=== PATIENT | male | born 1975 | race Two or more races ===

== ENCOUNTER 2016-12-30 00:02 | Emergency (ER) | payer SELFPAY ==
[2016-12-30 00:26] VITALS: BMI 17.8
[2016-12-30 00:32] VITALS: BP 138/88; PULSE 94; RESP 21; TEMP 97.4; O2SAT 98
--- NOTE | 2016-12-30 00:41 | ED PDOC ---
Arrival/HPI - General Chief Complaint: GI Problem Time Seen by Provider: 12/30/16 00:31 - History of Present Illness Narrative History of Present Illness (Text): 12/30/16 00:31 41yo male with a hx of pancreatitis, presents with abd pain, nausea and non- bilious non-bloody vomiting. pt states this feels like previous pancreatitis symptoms. Denies other complaints. No f/c. No symptoms. States he has a hx of alcoholic pancreatitis. States his last drink was 8 years ago. Past Medical History - Provider Review Nursing Documentation Reviewed: Yes - Infectious Disease Hx of Infectious Diseases: None - Pulmonary Hx Asthma: Yes - Endocrine/Metabolic Hx Endocrine Disorders: Yes Other/Comment: Pancreatitis - Gastrointestinal Hx Pancreatitis: Yes - Psychiatric Hx Substance Use: No - Surgical History Other/Comment: Lipoma removal - Anesthesia Hx Anesthesia: Yes Hx Anesthesia Reactions: No Hx Malignant Hyperthermia: No Family/Social History Family/Social History: Unknown Family HX Smoking Status: Heavy Smoker > 10 Cigarettes Daily Hx Alcohol Use: Yes (stopped 8 years ago) Hx Substance Use: No Allergies/Home Meds Allergies/Adverse Reactions: Allergies metoclopramide HCl [From Reglan] Allergy (Verified 12/30/16 00:26) RASH Penicillins Allergy (Verified 12/30/16 00:26) RASH Physical Exam - Physical Exam Narrative Physical Exam (Text): - Review of Systems Constitutional: Normal. absent: Fatigue, Weight Change, Fevers Eyes: Normal ENT: denies sore throat, denies tristhmus Respiratory: Normal. absent: SOB, Cough, Sputum Cardiovascular: absent: Chest Pain, Palpitations, Syncope Gastrointestinal: Abdominal Pain, Nausea, Vomiting. Absent: diarrhea Genitourinary: Normal. absent: Dysuria, Frequency, Hematuria Musculoskeletal: Normal. absent: Arthralgias, Back Pain, Neck Pain Skin: no rashes, no erythema Neurological: absent: Focal Weakness Endocrine: Normal Hemo/Lymphatic: Normal Psychiatric: No suicidal or homicidal ideations Physical exam Patient appears age appropriate in no distress, speaking full sentences without difficulty - Systems Exam Head: Present: Atraumatic, Normocephalic Pupils: Present: PERRL Extroacular Muscles: Present: EOMI Conjunctiva: Present: Normal Mouth: Present: Moist Mucous Membranes Neck: Present: Normal Range of Motion. No: MIDLINE TENDERNESS, Paraspinal Tenderness Respiratory/Chest: Present: Clear to Auscultation, Good Air Exchange. No: Respiratory Distress, Accessory Muscle Use, Tachypneic Cardiovascular: Present: Regular Rate and Rhythm, Normal S1, S2, Peripheal Pulses Present. No: Murmurs Abdomen: Present: Normal Bowel Sounds. No: Tenderness, Distention, Peritoneal Signs, Rebound, Guarding Back: Present: Normal Inspection. No: Midline Tenderness, Paraspinal Tenderness Upper Extremity: Present: Normal Inspection. No: Cyanosis, Edema Lower Extremity: Present: Normal Inspection. No: Edema Neurological: Present: GCS=15, Speech Normal, cranial nerves II through XII fully intact with no cerebellar abnormality, neurosensory fully intact. No focal neurological deficits. Skin: Present: Warm, Dry, Normal Color. No: Rashes Lymphatic: Present: OX3, NI, NC Psychiatric: Present: Alert, Oriented x 3, Normal Insight, Normal Concentration Vital Signs Reviewed: Yes Vital Signs Temp Pulse Resp BP Pulse Ox 12/30/16 00:28 98.2 F 81 20 150/86 99 Temperature: Afebrile Blood Pressure: Normal Pulse: Regular Respiratory Rate: Normal Appearance: Positive for: Well-Appearing Pain Distress: None Mental Status: Positive for: Alert and Oriented X 3 Medical Decision Making ED Course and Treatment: pt demanding Dilaudid in the ER, states he refuses to have any other medications I recommended zofran for his nausea, along with normal saline, and to start with toradol, morphine, or tylenol patient states he does not want to be in the ER if he does not receive dilaudid. The patient refuses any treatment and workup and wishes to leave the Emergency Department against my medical advice. Patient was told that treatment and workup are necessary and a full explanation of the reasons why was given, and understood by patient. The risks of leaving were explained and include worsening of condition, and permanent disability and from an undiagnosed or untreated condition. The patient accepts these risks, and is in my judgment is competent and capable of understanding the clinical situation and my explanation of the risks of leaving. Patient was given the opportunity to ask questions and change mind. The patient was instructed regarding the best care for the present symptoms, and to follow up with his primary physician as soon as possible, or return to the Emergency Department at any time for continuing care. Patient states he does not want any discharge paperwork and does not want follow up contacts or info. Disposition/Present on Arrival - Present on Arrival Any Indicators Present on Arrival: No History of DVT/PE: No History of Uncontrolled Diabetes: No Urinary Catheter: No History of Decub. Ulcer: No History Surgical Site Infection Following: None - Disposition Have Diagnosis and Disposition been Completed?: Yes Diagnosis: Abdominal pain Disposition: AGAINST MEDICAL ADVICE Disposition Time: 00:49 Patient Plan: Admission Condition: GUARDED
== END 2016-12-30 01:22 | disposition left against medical advice (07) ==
LOC: ED 00:02
DX: R10.9 Unspecified abdominal pain (principal)